=== PATIENT | male | born 1970 | race American Indian/Alaskan Native ===

== ENCOUNTER 2018-05-24 20:15 | Inpatient (IN) | payer MEDICAID ==
[2018-05-24] MEDS ORDERED: ZOFRAN IV ONE (21:03)
[2018-05-24] MEDS ORDERED: PEPCID IV ONE (21:03)
--- NOTE | 2018-05-24 21:11 | Emergency Department Report ---
ED General Adult HPI - General Stated complaint: NAUSE AND VOMITING Time Seen by Provider: 05/24/18 20:54 - History of Present Illness Initial comments: Patient is a 48-year-old -[place] male with a past medical history of congestive heart failure that is end stage who is at home Milrinone drip as well as history of chronic pain who is presenting with nausea/vomiting. Patient was released from the hospital service on May 11 approximately 2 and half weeks ago. Patient states he also was recently admitted to [facility] as well. Patient states that he is chronically been on Percocet however he got his last dose of Percocet 3 days ago. Patient went to go fill a prescription for Roxicodone today before being able to take that dose patient began vomiting. Patient been unable to keep anything down. Patient denies any chest pain shortness of breath fevers chills diarrhea, no congestion at this time. I was able to review the discharge summary for the patient that was from Hospital on on 05/21/2018. Patient Was Admitted for 4 Days of Diarrhea and Nausea and Vomiting. Patient Had Acute Kidney Injury Was Given Gentle IV Fluids and His Renal Function Did Improve. At Time of Discharge the Patient's BUN/creatinine Was 64 and 2.1 Respectively Associated Symptoms: denies: confusion, chest pain, diaphoresis, fever/chills, other (abd pain) - Related Data Allergies Allergy/AdvReac Type Severity Reaction Status Date / Time No Known Allergies Allergy Unverified 05/24/18 22:15 ED Review of Systems ROS: Stated complaint: NAUSE AND VOMITING Other details as noted in HPI Comment: All other systems reviewed and negative ED Physical Exam - General General appearance: alert, in no apparent distress - Head Head exam: Present: atraumatic, normocephalic - Eye Eye exam: Present: normal appearance - ENT ENT exam: Present: mucous membranes moist - Neck Neck exam: Present: normal inspection - Respiratory Respiratory exam: Present: normal lung sounds bilaterally. Absent: respiratory distress - Cardiovascular Cardiovascular Exam: Present: regular rate, normal rhythm. Absent: systolic murmur, diastolic murmur, rubs, gallop - GI/Abdominal GI/Abdominal exam: Present: soft, normal bowel sounds. Absent: distended, tenderness, guarding, rebound - Rectal Rectal exam: Present: deferred - Extremities Exam Extremities exam: Present: normal inspection - Back Exam Back exam: Present: normal inspection - Neurological Exam Neurological exam: Present: alert, oriented X3 - Psychiatric Psychiatric exam: Present: normal affect, normal mood - Skin Skin exam: Present: warm, dry, intact, normal color. Absent: rash ED Course Vital Signs 05/24/18 05/24/18 05/24/18 20:54 21:07 21:26 Temperature 97.4 F L 98.1 F Pulse Rate 117 H 115 H Respiratory 23 16 11 L Rate Blood Pressure 95/60 Blood Pressure 95/60 [Left] O2 Sat by Pulse 95 95 Oximetry - Reevaluation(s) Reevaluation #1: 05/24/18 21:10 Patient has been on chronic Percocet for chronic pain. Patient's last dose was approximately 3 days ago and likely his nausea vomiting is secondary to withdrawal. Patient states he has no pain at this time. Patient did take one dose of the Roxicodone may have Some of it down even after the vomiting. The patient has nausea will be controlled we will check laboratory studies. ED Medical Decision Making - Lab Data Result diagrams: 05/24/18 21:21 05/24/18 21:21 Lab Results 05/24/18 05/24/18 Range/Units 21:21 21:21 WBC 5.6 (4.5-11.0) K/mm3 RBC 3.99 (3.65-5.03) M/mm3 Hgb 10.8 L (11.8-15.2) gm/dl Hct 33.4 L (35.5-45.6) % MCV 84 (84-94) fl MCH 27 L (28-32) pg MCHC 32 (32-34) % RDW 18.2 H (13.2-15.2) % Plt Count 371 (140-440) K/mm3 Lymph % (Auto) 9.6 L (13.4-35.0) % [place] % (Auto) 8.2 H (0.0-7.3) % Eos % (Auto) 2.7 (0.0-4.3) % Baso % (Auto) 1.7 (0.0-1.8) % Lymph # 0.5 L (1.2-5.4) K/mm3 [place]linger # 0.5 (0.0-0.8) K/mm3 Eos # 0.2 (0.0-0.4) K/mm3 Baso # 0.1 (0.0-0.1) K/mm3 Seg Neutrophils % 77.8 H (40.0-70.0) % Seg Neutrophils # 4.3 (1.8-7.7) K/mm3 Sodium 119 L* (137-145) mmol/L Potassium 4.0 (3.6-5.0) mmol/L Chloride 73.9 L (98-107) mmol/L Carbon Dioxide 26 (22-30) mmol/L Anion Gap 23 mmol/L BUN 97 H (9-20) mg/dL Creatinine 4.2 H (0.8-1.5) mg/dL Estimated GFR 19 ml/min BUN/Creatinine Ratio 23 % Glucose 126 H (75-100) mg/dL Calcium 9.2 (8.4-10.2) mg/dL Total Bilirubin 1.50 H (0.1-1.2) mg/dL AST 145 H (5-40) units/L ALT 162 H (7-56) units/L Alkaline Phosphatase 112 (35-129) units/L Total Protein 6.5 (6.3-8.2) g/dL Albumin 3.6 L (3.9-5) g/dL Albumin/Globulin Ratio 1.2 % Lipase 26 (13-60) units/L - EKG Data -: EKG Interpreted by Me - EKG Data Interpretation: other 05/24/18 21:09 EKG shows sinus tachycardia 117 axis is leftward intervals show a prolonged QT. There is a bifascicular block. Patient with no acute ST segment elevations. Time of interpretation is 2054 - Medical Decision Making Patient is a 48-year-old asthmatic male with end-stage CHF who is here for nausea vomiting and probable opiate withdrawal. Patient has had some worsening of his renal function and his sodium is low as well. Patient be admitted to the hospitalist service under Dr. Coats. Patient been given gentle hydration with 5 mL bolus to start with. Patient admitted in stable condition. Critical Care Time: Yes (30) Critical care attestation.: If time is entered above; I have spent that time in minutes in the direct care of this critically ill patient, excluding procedure time. ED Disposition Clinical Impression: Acute kidney injury, End stage congestive heart failure, Hyponatremia, Withdrawal from opioids Disposition: DC-09 OP ADMIT IP TO THIS HOSP Is pt being admited?: Yes Does the pt Need Aspirin: No Condition: Stable Referrals: PRIMARY CARE, [Primary Care Provider] - 3-5 Days Time of Disposition: 00:29
[2018-05-24 21:47] LABS: Albumin 3.6 g/dL (3.9-5); Calcium 9.2 mg/dL (8.4-10.2)
[2018-05-24 21:50] LABS: Hematocrit 33.4 % (35.5-45.6); Hemoglobin 10.8 gm/dl (11.8-15.2); Mean Corpuscular HGB Conc 32 % (32-34); Mean Corpuscular Volume 84 fl (84-94); Platelet Count 371 K/mm3 (140-440); Red Blood Count 3.99 M/mm3 (3.65-5.03); Red Cell Distribution Width 18.2 % (13.2-15.2)
[2018-05-24 21:52] LABS: Basophils % (Auto) 1.7 % (0.0-1.8); Eosinophils % (Auto) 2.7 % (0.0-4.3); Lymphocytes # (Auto) 0.5 K/mm3 (1.2-5.4); Lymphocytes % (Auto) 9.6 % (13.4-35.0); Monocytes % (Auto) 8.2 % (0.0-7.3)
[2018-05-24 21:53] LABS: Basophils # (Auto) 0.1 K/mm3 (0.0-0.1); Eosinophils # (Auto) 0.2 K/mm3 (0.0-0.4); Monocytes # (Auto) 0.5 K/mm3 (0.0-0.8)
[2018-05-24] MEDS ORDERED: NACL 0.9% 500 ML 500 ML IV ONE (23:50)
[2018-05-25] MEDS ORDERED: PERCOCET 5/325 PO ONE (00:52)
[2018-05-25] MEDS ORDERED: TYLENOL PO PRN (01:50)
[2018-05-25] MEDS ORDERED: SODIUM CHLORIDE FLUSH SYRINGE 10 ML IV PRN (01:50)
[2018-05-25] MEDS ORDERED: ZOFRAN IV PRN (01:50)
--- NOTE | 2018-05-25 01:54 | History and Physical Report ---
History of Present Illness Date of examination: 05/25/18 History of present illness: 48-year-old man with a history of end-stage CHF on milrinone drip causing emergency room with complaints of nausea vomiting. He was Recently hospitalized at [facility] for nausea vomiting diarrhea and acute renal failure. He underwent a right heart cath, subsequently determined not to be a candidate for advanced therapies for treatment of his end-stage heart failure. Patient was transferred to [facility] advanced heart failure team for second opinion, he was deemed not to be a candidate for advanced therapy. He was made a DO NOT RES USCITATE but he has rescinded DO NOT RESUSCITATE and wants everything to be done. Complaints of feeling cold, he hasn't had any narcotics in the last 3 days. Patient has persistent tachycardia since his been in the emergency room, I have checked a rectal temperature, he is febrile. Records reviewed [facility] Review of systems Constitutional: no weight loss,fever Ears, eyes, nose, mouth and throat: no nasal congestion, no nasal discharge, no sinus pressure, no vision change, no red eye. Neck: No neck pain or rigidity. Cardiovascular: no palpitations, chest pain Respiratory: no cough, shortness of breath Gastrointestinal: no hematochezia, abdominal pain Genitourinary : no frequency , no hematuria Musculoskeletal: no joint swelling or muscle ache Integumentary: no rash, no pruritis Neurological: no parathesias, no focal weakness Endocrine: no cold or heat intolerance, no polyuria or polydipsia Hematologic/Lymphatic: no easy bruising, no easy bleeding, no gland swelling Allergic/Immunologic: no urticaria, no angioedema. PAST MEDICAL HISTORY: End-stage heart failure, chronic kidney disease, gout PAST SURGICAL HISTORY: None SOCIAL HISTORY: Denies alcohol, drugs, tobacco FAMILY HISTORY: Hypertension Medications and Allergies Allergies Allergy/AdvReac Type Severity Reaction Status Date / Time No Known Allergies Allergy Verified 05/25/18 01:58 Exam - Physical Exam Narrative exam: General Apperance: The patient lying in bed, breathing comfortable HEENT: Normocephalic, atraumatic. Pupils equally round and reactive to light, EOMI, no sclericterus or JVD or thyromegaly or nodule. , no carotid bruit, mucous membranes moist, no exudate or erythema Heart: S1-S2, regular is rhythm Lungs: Decreased breath sound at bases bilaterally, breathing comfortable Abdomen: Positive bowel sounds, soft, nontender, nondistended, no organomegaly Extremities: No edema cyanosis clubbing Skin: no rash, nodule, warm and dry Neuro: cranial nerves 2-12 intact, speech is fluent, motor/sensory intact - Constitutional Vitals: Temp Pulse Resp BP Pulse Ox 98.1 F 115 H 11 L 95/60 95 05/24/18 21:26 05/24/18 21:26 05/24/18 21:26 05/24/18 21:26 05/24/18 21:26 Results - Labs CBC & Chem 7: 05/24/18 21:21 05/24/18 21:21 Labs: Abnormal lab results 05/24/18 05/24/18 Range/Units 21:21 21:21 Hgb 10.8 L (11.8-15.2) gm/dl Hct 33.4 L (35.5-45.6) % MCH 27 L (28-32) pg RDW 18.2 H (13.2-15.2) % Lymph % (Auto) 9.6 L (13.4-35.0) % [place] % (Auto) 8.2 H (0.0-7.3) % Lymph # 0.5 L (1.2-5.4) K/mm3 Seg Neutrophils % 77.8 H (40.0-70.0) % Sodium 119 L* (137-145) mmol/L Chloride 73.9 L (98-107) mmol/L BUN 97 H (9-20) mg/dL Creatinine 4.2 H (0.8-1.5) mg/dL Glucose 126 H (75-100) mg/dL Total Bilirubin 1.50 H (0.1-1.2) mg/dL AST 145 H (5-40) units/L ALT 162 H (7-56) units/L Albumin 3.6 L (3.9-5) g/dL Assessment and Plan Assessment SIRS Acute renal insufficiency on chronic End-stage heart failure on milrinone drip Hyponatremia Chronic pain Plan Admit to medicine Start IV Zosyn, obtain blood cultures, urinalysis, chest x-ray Consult renal, cardiology, continue the IV fluids DVT prophylaxis
--- NOTE | 2018-05-25 02:57 | XRay Report ---
FINAL REPORT PROCEDURE: XR CHEST 1V AP TECHNIQUE: Chest radiograph anteroposterior view. CPT 02664 HISTORY: evaluate for pna COMPARISON: No prior studies are available for comparison. FINDINGS: Heart: The heart is enlarged. Mediastinum/Vessels: Normal. Lungs/Pleural space: Lungs are expanded. There are no acute infiltrates. There is no pleural effusion or pneumothorax.. Bony thorax: No acute osseous abnormality. Life support devices: There is right-sided PICC line. The tip is in the superior vena cava.. IMPRESSION: The heart is enlarged. Lungs are expanded. There are no acute infiltrates. There is no pleural effusion or pneumothorax.. There is right-sided PICC line. The tip is in the superior vena cava.. .
[2018-05-25] MEDS ORDERED: ZOSYN/NS 4.5GM/100ML 4.5 GM/100 ML VIAL IV ONE (03:01)
[2018-05-25] MEDS: ZOSYN/NS 2.25 GM/50ML 2.25 GM/50 ML BAG IV SCH ×3 (03:10→23:00)
[2018-05-25 03:22] LABS: Bilirubin,Urine NEG (Negative); Blood,Urine NEG (Negative); Color,Urine Yellow (Yellow); Mucus,Urine FEW /HPF; Protein,Urine <15 mg/dL mg/dL (Negative); Urobilinogen,Urine < 2.0 mg/dL (<2.0)
[2018-05-25 07:08] LABS: Hematocrit 31.1 % (35.5-45.6); Mean Corpuscular HGB Conc 32 % (32-34); Mean Corpuscular Volume 82 fl (84-94); Platelet Count 340 K/mm3 (140-440); Red Blood Count 3.77 M/mm3 (3.65-5.03); Red Cell Distribution Width 18.6 % (13.2-15.2)
[2018-05-25 07:27] LABS: Calcium 9.3 mg/dL (8.4-10.2)
[2018-05-25 07:29] LABS: Creatine Kinase MB 1.8 ng/mL (0.0-4.0)
[2018-05-25 07:49] LABS: Chol/HDL Ratio 4.44 %
[2018-05-25 08:56] LABS: Creatine Kinase MB 1.8 ng/mL (0.0-4.0)
[2018-05-25 09:25] LABS: Basophils % (Manual) 0 % (0.0-1.8); Eosinophils % (Manual) 0 % (0.0-4.3); Total Cells Counted 100
[2018-05-25 09:26] LABS: Anisocytosis 1+; Ovalocytes Few; Platelet Estimate Cons; Poikilocytosis 1+; Target Cells Few
[2018-05-25] MEDS ORDERED: LOVENOX SUB-Q ONE (10:58)
--- NOTE | 2018-05-25 11:10 | Event Note ---
Date: 05/25/18 Patient reevaluated Same condition Labs and overnite events reviewedWhite count has gone up
[2018-05-25] MEDS: SODIUM CHLORIDE FLUSH SYRINGE 10 ML IV SCH ×2 (11:19→22:50)
[2018-05-25] MEDS: LOVENOX SUB-Q SCH (11:19)
--- NOTE | 2018-05-25 11:19 | Consultation ---
History of Present Illness - Reason for Consult Consult date: 05/25/18 acute renal failure, chronic renal failure Requesting physician: CHRIS DENNIS - History of Present Illness Patient is a 48-year-old -[place] male with a past medical history of congestive heart failure that is end stage who is at home Milrinone drip as well as history of chronic pain who Present to the emergency room with nausea/vomiting. Patient was released from the hospital service on May 11 approximately 2 and half weeks ago. Patient states he also was recently admitted to [facility] as well. Patient states that he is chronically been on Percocet however he got his last dose of Percocet 3 days ago. Patient went to go fill a prescription for Roxicodone yesterday before being able to take that dose patient began vomiting. Patient been unable to keep anything down. Patient denies any chest pain shortness of breath fevers chills diarrhea, no congestion at this time. as noted in the H&P patient Was Admitted for 4 Days of Diarrhea and Nausea and Vomiting. Patient Had Acute Kidney Injury Was Given Gentle IV Fluids and His Renal Function Did Improve. At Time of Discharge the Patient's BUN/creatinine Was 64 and 2.1 Respectively Past History Past Medical History: other (end-stage cardiomyopathy, chronic kidney disease) Past Surgical History: No surgical history Medications and Allergies Allergies Allergy/AdvReac Type Severity Reaction Status Date / Time No Known Allergies Allergy Verified 05/25/18 01:58 Home Medications Medication Instructions Recorded Confirmed Last Taken Type Aspirin [Aspirin BABY CHEW TAB] 81 mg PO QDAY 05/25/18 05/25/18 1 Day Ago History ~05/24/18 AtorvaSTATin [Lipitor] 20 mg PO QHS 05/25/18 05/25/18 1 Day Ago History ~05/24/18 Digoxin [Lanoxin] 0.125 mg PO DAILY 05/25/18 05/25/18 1 Day Ago History ~05/24/18 Ferrous Sulfate [Iron] 325 mg PO TID 05/25/18 05/25/18 1 Day Ago History ~05/24/18 Hydralazine HCl 50 mg PO Q8HR 05/25/18 05/25/18 1 Day Ago History ~05/24/18 Isosorbide Dinitrate [Isordil 10 mg PO TID 05/25/18 05/25/18 1 Day Ago History Titradose] ~05/24/18 Milrinone-D5w 20 mg/100 ml 7.1 hour IV CONT 05/25/18 05/25/18 05/25/18 06:06 History continuous Spironolactone [Aldactone] 25 mg PO QDAY 05/25/18 05/25/18 1 Day Ago History ~05/24/18 Torsemide [Demadex] 20 mg PO BID 05/25/18 05/25/18 1 Day Ago History ~05/24/18 oxyCODONE /ACETAMINOPHEN [Percocet 10 mg PO Q6HR PRN 05/25/18 05/25/18 1 Day Ago History 5/325] ~05/24/18 Active Meds: Active Medications Acetaminophen (Tylenol) 650 mg PO Q4H PRN PRN Reason: Pain MILD(1-3)/Fever >100.5/SANTIAGO Enoxaparin Sodium (Lovenox) 30 mg SUB-Q QDAY BURAK Piperacillin Sod/Tazobactam Sod (Zosyn/Ns 2.25 Gm/50ml) 2.25 gm in 50 mls @ 100 mls/hr IV Q8H BURAK; Protocol Last Admin: 05/25/18 11:18 Dose: 100 mls/hr Documented by: Ondansetron HCl (Zofran) 4 mg IV Q4H PRN PRN Reason: Nausea And Vomiting Oxycodone/Acetaminophen (Percocet 5/325) 1 tab PO Q6H PRN PRN Reason: Pain, Moderate (4-6) Sodium Chloride (Sodium Chloride Flush Syringe 10 Ml) 10 ml IV BID BURAK Sodium Chloride (Sodium Chloride Flush Syringe 10 Ml) 10 ml IV PRN PRN PRN Reason: LINE FLUSH Review of Systems All systems: negative (negative except as noted above) Exam - Vital Signs Vital signs: Vital Signs Pulse Ox 93 05/24/18 20:49 - General Appearance General appearance: well-developed, well-nourished, appears stated age EENT: PERRL, mucous membranes moist Neck: Present: neck supple, trachea midline. Absent: JVD/HJR, Masses Respiratory: Decreased Breath Sounds (at the bases) Heart: regular, normal heart rate Gastrointestinal: Present: normal, normoactive bowel sounds Integumentary: other (1+ edema) Results - Lab Results 05/25/18 06:41 05/25/18 06:41 Most recent lab results Calcium 9.3 mg/dL (8.4-10.2) 05/25/18 06:41 Assessment and Plan impression * Acute on chronic renal failure * Nausea and vomiting * Hyponatremia * Severe cardiomyopathy * Hyperlipidemia recommendations * Although patient does have some peripheral edema , His lungs are clear * history seems to be consistent with dehydration * Hydrate him gently with isotonic fluids * Do Workup for hyponatremia * check vasculitis workup as well * Renal ultrasound to assess kidney size and echogenicity * Avoid nephrotoxins * Monitor fluid status and electrolytes closely * Thank you very much for the consultation. Shall follow along with you
--- NOTE | 2018-05-25 12:54 | Ultrasound Report ---
FINAL REPORT EXAM: US RENAL BILAT HISTORY: renal failure TECHNIQUE: Renal ultrasound. PRIORS: None currently available. FINDINGS: RIGHT KIDNEY: 11.3 x 5.1 x 6.2 cm. Cortex measures 1.5 cm. Normal echotexture. No hydronephrosis, sto ne, or lesion. LEFT KIDNEY: 9.9 x 4.9 x 4.9 cm. Cortex measures 1.6 cm. Normal echotexture. No hydronephrosis, stone , or lesion. BLADDER: Limited images are unremarkable. IMPRESSION: Unremarkable.
[2018-05-25 12:59] LABS: Creatinine,Urine 65.1 mg/dL (0.1-20.0); Fractional Sodium Excretion 0.6
[2018-05-25 13:35] LABS: Hepatitis B Surface Antigen Non-Reactive (Negative); Hepatitis C Virus Antibody Non-Reactive (NonReactive)
[2018-05-25] MEDS ORDERED: NACL 0.9% 1000 ML 1,000 ML IV SCH (17:00)
[2018-05-25] MEDS ORDERED: PERCOCET 5/325 PO PRN (17:18)
[2018-05-25] MEDS ORDERED: MILRINONE IV SCH (17:30)
[2018-05-25] MEDS ORDERED: NON-FORMULARY (Hydralazine Hcl [Hydralazine Hcl] 50 MG) PO SCH (17:30)
[2018-05-25] MEDS ORDERED: DEXTROSE IV SCH (17:30)
--- NOTE | 2018-05-25 17:47 | Consultation ---
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 Of note the patient has been hospitalized multiple times within the last year most recently he was hospitalized in the [place] system in January 2018 with a diagnosis of acute on chronic systolic heart failure and discharged home on palliative inotropic. In 04/27/2018The patient was admitted to [facility] with complaints of diarrhea nausea and lack of appetite. The patient also had acute on chronic kidney failure. During this hospitalization it was discovered that the patient was not a candidate for advanced therapies at [place] due to compliance issues. Palliative care was consulted for hospice discussion. The patient declined hospice and was subsequently transferred to [facility] hospital on 05/09/2018. Aggressive intravenous diarrhetic's was used and the patient was also offered an intra-aortic balloon pump. The patient once again was considered not a ca ndidate for advanced therapy. During this hospitalization the patient's CODE STATUS was changed to DNR/DNI and he was discharged to inpatient hospice on 05/21/2017. [facility] inpatient hospice the patient was . In doing his inpatient hospital stay he subsequent decided to discharge himself and leave and go home. Once the patient went home he developed significant nausea and vomiting. In the emergency department the patient was noted to have a low-grade fever of 100.9. He was tachycardic and a pulse of 117. His white count was 16.2. Sodium 122. BUN 101. Creatinine 4.3 Past History Past Medical History: heart failure, hypertension, hyperlipidemia, other (end- stage cardiomyopathy, chronic kidney disease) Past Surgical History: No surgical history Social history: prescription drug abuse. denies: smoking, IV drug use Family history: no significant family history Medications and Allergies Allergies Allergy/AdvReac Type Severity Reaction Status Date / Time No Known Allergies Allergy Verified 05/25/18 01:58 Home Medications Medication Instructions Recorded Confirmed Last Taken Type Aspirin [Aspirin BABY CHEW TAB] 81 mg PO QDAY 05/25/18 05/25/18 1 Day Ago History ~05/24/18 AtorvaSTATin [Lipitor] 20 mg PO QHS 05/25/18 05/25/18 1 Day Ago History ~05/24/18 Digoxin [Lanoxin] 0.125 mg PO DAILY 05/25/18 05/25/18 1 Day Ago History ~05/24/18 Ferrous Sulfate [Iron] 325 mg PO TID 05/25/18 05/25/18 1 Day Ago History ~05/24/18 Hydralazine HCl 50 mg PO Q8HR 05/25/18 05/25/18 1 Day Ago History ~05/24/18 Isosorbide Dinitrate [Isordil 10 mg PO TID 05/25/18 05/25/18 1 Day Ago History Titradose] ~05/24/18 Milrinone-D5w 20 mg/100 ml 7.1 hour IV CONT 05/25/18 05/25/18 05/25/18 06:06 History continuous Spironolactone [Aldactone] 25 mg PO QDAY 05/25/18 05/25/18 1 Day Ago History ~05/24/18 Torsemide [Demadex] 20 mg PO BID 05/25/18 05/25/18 1 Day Ago History ~05/24/18 oxyCODONE /ACETAMINOPHEN [Percocet 10 mg PO Q6HR PRN 05/25/18 05/25/18 1 Day Ago History 325] ~05/24/18 Active Meds: Active Medications Acetaminophen (Tylenol) 650 mg PO Q4H PRN PRN Reason: Pain MILD(1-3)/Fever >100.5/SANTIAGO Aspirin (Baby Aspirin) 81 mg PO QDAY [facility] Atorvastatin Calcium (Lipitor) 20 mg PO QHS [facility] Digoxin (Lanoxin) 0.125 mg PO DAILY [facility] Enoxaparin Sodium (Lovenox) 30 mg SUB-Q QDAY [facility] Last Admin: 05/25/18 11:19 Dose: 30 mg Documented by: Ferrous Sulfate (Feosol) 325 mg PO TID [facility] Piperacillin Sod/Tazobactam Sod (Zosyn/Ns 2.25 Gm/50ml) 2.25 gm in 50 mls @ 100 mls/hr IV Q8H [facility]; Protocol Last Admin: 05/25/18 11:18 Dose: 100 mls/hr Documented by: Sodium Chloride (Nacl 0.9% 1000 Ml) 1,000 mls @ 75 mls/hr IV DIRECT [facility] Isosorbide Dinitrate (Isordil Titradose) 10 mg PO TID [facility] Miscellaneous Medication (Hydralazine Hcl [Hydralazine Hcl]) 50 mg PO Q8HR [facility] Miscellaneous Medication (Milrinone-D5w 20 Mg/100 Ml) 7.1 hour IV CONT [facility] Miscellaneous Medication (Torsemide [Demadex]) 20 mg PO BID [facility] Ondansetron HCl (Zofran) 4 mg IV Q4H PRN PRN Reason: Nausea And Vomiting Oxycodone/Acetaminophen (Percocet 5/325) 1 tab PO Q6H PRN PRN Reason: Pain, Moderate (4-6) Oxycodone/Acetaminophen (Percocet 5/325) tab PO Q6HR PRN PRN Reason: Pain Sodium Chloride (Sodium Chloride Flush Syringe 10 Ml) 10 ml IV BID [facility] Last Admin: 05/25/18 11:19 Dose: 10 ml Documented by: Sodium Chloride (Sodium Chloride Flush Syringe 10 Ml) 10 ml IV PRN PRN PRN Reason: LINE FLUSH Spironolactone (Aldactone) 25 mg PO QDAY [facility] Review of Systems Constitutional: weight loss, no fever, no chills, no sweats Ears, nose, mouth and throat: no ear pain, no ear discharge, no tinnitis Cardiovascular: chest pain (mild), leg edema, no orthopnea, no palpitations, no syncope Respiratory: no cough, no hemoptysis, no shortness of breath Gastrointestinal: abdominal pain, nausea, vomiting, other (distention) Genitourinary Male: urinary retention Rectal: no incontinence, no bleeding Musculoskeletal: no neck stiffness, no neck pain Integumentary: no rash, no pruritis Neurological: weakness, no head injury, no paralysis Endocrine: no cold intolerance, no heat intolerance Hematologic/Lymphatic: no easy bruising, no easy bleeding Allergic/Immunologic: no urticaria, no allergic rhinitis Physical Examination Vital Signs Pulse Ox 93 05/24/18 20:49 General appearance: no acute distress HEENT: Positive: PERRL Neck: Positive: neck supple, trachea midline Cardiac: Positive: Regular Rhythm, Tachycardia Lungs: Positive: clear to auscultation, Normal Breath Sounds Neuro: Positive: Grossly Intact Abdomen: Positive: Soft, Decreased Bowel Sounds, Distended Male genitourinary: Positive: deferred Skin: Negative: Rash, Suspicious Lesions Extremities: Present: +1 Edema, warm Results 05/25/18 06:41 05/25/18 06:41 Cardiac Enzymes 05/24/18 05/25/18 05/25/18 Range/Units 21:21 06:41 08:08 AST 145 H (5-40) units/L CK-MB (CK-2) 1.8 1.8 (0.0-4.0) ng/mL Lipids 05/25/18 Range/Units 06:41 Triglycerides 62 (2-149) mg/dL Cholesterol 80 (50-199) mg/dL HDL Cholesterol 18 L (40-59) mg/dL Cholesterol/HDL Ratio 4.44 % CBC 05/24/18 05/25/18 Range/Units 21:21 06:41 WBC 5.6 16.2 H (4.5-11.0) K/mm3 RBC 3.99 3.77 (3.65-5.03) M/mm3 Hgb 10.8 L 10.0 L (11.8-15.2) gm/dl Hct 33.4 L 31.1 L (35.5-45.6) % Plt Count 371 340 (140-440) K/mm3 Lymph # 0.5 L (1.2-5.4) K/mm3 Henry # 0.5 (0.0-0.8) K/mm3 Eos # 0.2 (0.0-0.4) K/mm3 Baso # 0.1 (0.0-0.1) K/mm3 Comprehensive Metabolic Panel 05/24/18 05/25/18 Range/Units 21:21 06:41 Sodium 119 L* 122 L (137-145) mmol/L Potassium 4.0 4.5 (3.6-5.0) mmol/L Chloride 73.9 L 77.6 L (98-107) mmol/L Carbon Dioxide 26 26 (22-30) mmol/L BUN 97 H 101 H (9-20) mg/dL Creatinine 4.2 H 4.3 H (0.8-1.5) mg/dL Glucose 126 H 104 H (75-100) mg/dL Calcium 9.2 9.3 (8.4-10.2) mg/dL AST 145 H (5-40) units/L ALT 162 H (7-56) units/L Alkaline Phosphatase 112 (35-129) units/L Total Protein 6.5 (6.3-8.2) g/dL Albumin 3.6 L (3.9-5) g/dL EKG interpretations - Telemetry EKG Rhythm: Sinus Tachycardia Assessment and Plan Vomiting/Nausea Concern for withdrawal symptoms Leukocytosis Hyponatremia Acute on Chronic Kidney failure Transaminitis Chronic systolic/diatolic heart failure EF 10-15% on pallliative milrinone (home 0.6mcg/kg/min) NICM stage D sever MR/TR Hypertension Hyperlipidemia Stage III CKD/Cardiorenal Syndrome Chronic pain PLAN: The patient has been evaluated within 2 hospital systems and deemed not a candidate for advanced therapy. With regard to the patient's cardiac status he has advanced end-stage heart failure. We will need to address possible inpatient versus home hospice. The patient was discharged from [facility] on Bumex 5 mg twice a day Colace 100 mg twice a day as needed potassium 20 mEq 2 tablets once a day continuous milrinone drip Aldactone 25 mg daily. The following medications were discontinued at [facility] start aspirin, Lipitor, digoxin, hydralazine, Percocet, and torsemide. Given the patient has known chronic pain he will likely require outpatient pain medicine to avoid withdrawal symptoms. In [facility] the patient was on hospital the patient was taking Percocet 5/325.
[2018-05-25] MEDS: BABY ASPIRIN PO SCH (18:48)
[2018-05-25] MEDS: ALDACTONE PO SCH (18:48)
[2018-05-25] MEDS: ISORDIL TITRADOSE PO SCH (20:28)
[2018-05-25] MEDS: DEMADEX PO SCH ×2 (20:29→21:30)
[2018-05-25] MEDS: MILRINONE-D5W 20 MG/100 ML 20 MG/100 ML BAG IV SCH (21:09)
[2018-05-25] MEDS: FEOSOL PO SCH (21:25)
[2018-05-25] MEDS: LANOXIN PO SCH (21:25)
[2018-05-25] MEDS: APRESOLINE PO SCH (21:51)
[2018-05-25] MEDS ORDERED: NON-FORMULARY (Torsemide [Demadex] 20 MG) PO SCH (22:00)
[2018-05-26] MEDS: PERCOCET 5/325 PO PRN ×3 (00:50→20:58)
[2018-05-26] MEDS: ZOSYN/NS 2.25 GM/50ML 2.25 GM/50 ML BAG IV SCH ×3 (04:00→20:57)
[2018-05-26] MEDS: MILRINONE-D5W 20 MG/100 ML 20 MG/100 ML BAG IV SCH (06:35)
[2018-05-26] MEDS: DEMADEX PO SCH ×2 (06:38→17:28)
[2018-05-26] MEDS: APRESOLINE PO SCH ×3 (06:39→21:14)
[2018-05-26 08:12] LABS: Basophils # (Auto) 0.1 K/mm3 (0.0-0.1); Basophils % (Auto) 0.6 % (0.0-1.8); Eosinophils # (Auto) 0.3 K/mm3 (0.0-0.4); Eosinophils % (Auto) 3.1 % (0.0-4.3); Hematocrit 33.2 % (35.5-45.6); Hemoglobin 10.6 gm/dl (11.8-15.2); Lymphocytes # (Auto) 1.3 K/mm3 (1.2-5.4); Mean Corpuscular HGB Conc 32 % (32-34); Mean Corpuscular Volume 83 fl (84-94); Monocytes # (Auto) 0.7 K/mm3 (0.0-0.8); Monocytes % (Auto) 7.2 % (0.0-7.3); Platelet Count 339 K/mm3 (140-440); Red Blood Count 4.01 M/mm3 (3.65-5.03); Red Cell Distribution Width 18.2 % (13.2-15.2)
[2018-05-26] MEDS: ISORDIL TITRADOSE PO SCH ×3 (08:19→20:58)
[2018-05-26 08:28] LABS: Calcium 9.2 mg/dL (8.4-10.2)
--- NOTE | 2018-05-26 08:37 | Progress Note ---
Assessment and Plan impression * Acute on chronic renal failure * Nausea and vomiting * Hyponatremia * Severe cardiomyopathy * Hyperlipidemia recommendations * Patient does have some fine basilar crackles and peripheral edema . * No further complaints of nausea or vomiting. Discontinue his IV fluid for now * Patient may have cardiorenal syndrome. * Currently on milrinone drip * Serum sodium is slowly improving. Restrict free water intake. * Follow up results of vasculitis workup * Renal ultrasound is normal * Avoid nephrotoxins * Monitor fluid status and electrolytes closely Subjective Date of service: 05/26/18 Interval history: Patient denies any more nausea or vomiting. Shortness of breath seems to be improving. Objective - Vital Signs Vital signs: Vital Signs - 12hr 05/25/18 05/25/18 05/25/18 21:25 21:51 22:00 Temperature Pulse Rate 84 84 Pulse Rate [ 118 H Right Radial] Respiratory Rate Blood Pressure 90/45 90/45 O2 Sat by Pulse 94 Oximetry 05/25/18 05/26/18 05/26/18 22:28 04:00 04:33 Temperature 97.4 F L 98.0 F Pulse Rate 124 H 122 H 116 H Pulse Rate [ Right Radial] Respiratory 18 16 Rate Blood Pressure 85/53 81/53 O2 Sat by Pulse 94 97 Oximetry 05/26/18 06:39 Temperature Pulse Rate 113 H Pulse Rate [ Right Radial] Respiratory Rate Blood Pressure 85/53 O2 Sat by Pulse Oximetry - General Appearance General appearance: well-developed, well-nourished, appears stated age EENT: PERRL, mucous membranes moist Neck: no JVD, no thyromegaly, no carotid bruit, supple Respiratory: Present: Rales (left base) Cardiology: regular, normal heart rate, S1S2, no murmurs Gastrointestinal: normal, normoactive bowel sounds Integumentary: other (1+ edema) - Lab 05/26/18 07:38 05/26/18 07:38 Most recent lab results Calcium 9.2 mg/dL (8.4-10.2) 05/26/18 07:38 Urine Creatinine 65.1 mg/dL (0.1-20.0) H 05/25/18 12:39 Urine Sodium 12 mmol/L 05/25/18 12:39 Medications & Allergies - Medications Allergies/Adverse Reactions: Allergies No Known Allergies Allergy (Verified 05/25/18 01:58) Home Medications: Home Medications Medication Instructions Recorded Confirmed Last Taken Type Aspirin [Aspirin BABY CHEW TAB] 81 mg PO QDAY 05/25/18 05/25/18 1 Day Ago History ~05/24/18 AtorvaSTATin [Lipitor] 20 mg PO QHS 05/25/18 05/25/18 1 Day Ago History ~05/24/18 Digoxin [Lanoxin] 0.125 mg PO DAILY 05/25/18 05/25/18 1 Day Ago History ~05/24/18 Ferrous Sulfate [Iron] 325 mg PO TID 05/25/18 05/25/18 1 Day Ago History ~05/24/18 Hydralazine HCl 50 mg PO Q8HR 05/25/18 05/25/18 1 Day Ago History ~05/24/18 Isosorbide Dinitrate [Isordil 10 mg PO TID 05/25/18 05/25/18 1 Day Ago History Titradose] ~05/24/18 Milrinone-D5w 20 mg/100 ml 7.1 hour IV CONT 05/25/18 05/25/18 05/25/18 06:06 History continuous Spironolactone [Aldactone] 25 mg PO QDAY 05/25/18 05/25/18 1 Day Ago History ~05/24/18 Torsemide [Demadex] 20 mg PO BID 05/25/18 05/25/18 1 Day Ago History ~05/24/18 oxyCODONE /ACETAMINOPHEN [Percocet 10 mg PO Q6HR PRN 05/25/18 05/25/18 1 Day Ago History 5/325] ~05/24/18 Active Medications: Generic Name Dose Route Start Last Admin Trade Name Freq PRN Reason Stop Dose Admin Acetaminophen 650 mg 05/25/18 01:50 Tylenol PO Q4H PRN Pain MILD(1-3)/Fever >100.5/SANTIAGO Aspirin 81 mg 05/25/18 18:00 05/25/18 18:48 Baby Aspirin PO Not Given QDAY [facility] Atorvastatin Calcium 20 mg 05/25/18 22:00 05/25/18 21:26 Lipitor PO 20 mg QHS [facility] Administration Digoxin 0.125 mg 05/25/18 18:00 05/25/18 21:25 Lanoxin PO 0.125 mg DAILY [facility] Administration Enoxaparin Sodium 30 mg 05/25/18 10:00 05/25/18 11:19 Lovenox SUB-Q 30 mg QDAY [facility] Administration Ferrous Sulfate 325 mg 05/25/18 20:00 05/25/18 21:25 Feosol PO 325 mg TID [facility] Administration Hydralazine HCl 50 mg 05/25/18 22:00 05/26/18 06:39 Apresoline PO Not Given Q8HR [facility] Piperacillin Sod/Tazobactam Sod 2.25 gm in 50 mls @ 100 mls/hr 05/25/18 03:00 05/26/18 04:00 Zosyn/Ns 2.25 Gm/50ml IV 100 mls/hr Q8H [facility] Administration Protocol Sodium Chloride 1,000 mls @ 75 mls/hr 05/25/18 17:00 05/25/18 21:26 Nacl 0.9% 1000 Ml IV 75 mls/hr DIRECT [facility] Administration Milrinone Lactate/Dextrose 20 mg in 100 mls @ 7.1 mls/hr 05/25/18 19:00 05/26/18 06:35 Milrinone-D5w 20 Mg/100 Ml IV 7.1 mls/hr DIRECT [facility] Administration Isosorbide Dinitrate 10 mg 05/25/18 20:00 05/26/18 08:19 Isordil Titradose PO Not Given TID [facility] Ondansetron HCl 4 mg 05/25/18 01:50 Zofran IV Q4H PRN Nausea And Vomiting Oxycodone/Acetaminophen 1 tab 05/25/18 01:50 05/26/18 00:50 Percocet 5/325 PO 1 tab Q6H PRN Administration Pain, Moderate (4-6) Oxycodone/Acetaminophen 1 tab 05/25/18 17:18 Percocet 5/325 PO Q6HR PRN Pain Sodium Chloride 10 ml 05/25/18 10:00 05/25/18 22:50 Sodium Chloride Flush Syringe 10 Ml IV 10 ml BID [facility] Administration Sodium Chloride 10 ml 05/25/18 01:50 Sodium Chloride Flush Syringe 10 Ml IV PRN PRN LINE FLUSH Spironolactone 25 mg 05/25/18 18:00 05/25/18 18:48 Aldactone PO Not Given QDAY [facility] Torsemide 20 mg 05/25/18 19:00 05/26/18 06:38 Demadex PO Not Given BID@0600,1800 [facility]
[2018-05-26] MEDS: FEOSOL PO SCH ×3 (09:09→20:57)
[2018-05-26] MEDS: LOVENOX SUB-Q SCH (09:09)
[2018-05-26] MEDS: BABY ASPIRIN PO SCH (09:09)
[2018-05-26] MEDS: ALDACTONE PO SCH (09:09)
[2018-05-26] MEDS: LANOXIN PO SCH (09:09)
[2018-05-26] MEDS: SODIUM CHLORIDE FLUSH SYRINGE 10 ML IV SCH ×2 (09:10→21:14)
--- NOTE | 2018-05-26 11:44 | Progress Note ---
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 With regard to the patient's cardiac status he has advanced end-stage heart failure. We will need to address possible inpatient versus home hospice. The patient was discharged from [facility] on Bumex 5 mg twice a day Colace 100 mg twice a day as needed potassium 20 mEq 2 tablets once a day continuous milrinone drip Aldactone 25 mg daily. The following medications were discontinued at [facility] start aspirin, Lipitor, digoxin, hydralazine, Percocet, and torsemide. Given the patient has known chronic pain he will likely require outpatient pain medicine to avoid withdrawal symptoms. In [facility] the patient was on hospital the patient was taking Percocet 5/325. The patient has been seen in conjunction with Dr. Millan who agrees with the assessment and plan of care. Subjective Date of service: 05/26/18 Principal diagnosis: N/V Interval history: pt sitting at bedside, no current cardiac complaints. n/v improving, tolerating clears. tele reviewed - pt in ST HR 115. milrinone gtt infusing. Objective Last Vital Signs Temp 98.2 F 05/26/18 08:54 Pulse 90 05/26/18 09:09 Resp 20 05/26/18 08:54 BP 84/50 05/26/18 08:54 Pulse Ox 99 05/26/18 08:54 - Physical Examination General: No Apparent Distress HEENT: Positive: PERRL Neck: Positive: neck supple, trachea midline Cardiac: Positive: Regular Rhythm, S1/S2, Tachycardia Lungs: Positive: clear to auscultation Neuro: Positive: Grossly Intact Abdomen: Positive: Soft, Decreased Bowel Sounds, Distended Skin: Negative: Rash, Suspicious Lesions Extremities: Present: +1 Edema, warm - Labs and Meds CBC 05/26/18 Range/Units 07:38 WBC 10.3 (4.5-11.0) K/mm3 RBC 4.01 (3.65-5.03) M/mm3 Hgb 10.6 L (11.8-15.2) gm/dl Hct 33.2 L (35.5-45.6) % Plt Count 339 (140-440) K/mm3 Lymph # 1.3 (1.2-5.4) K/mm3 Edgar # 0.7 (0.0-0.8) K/mm3 Eos # 0.3 (0.0-0.4) K/mm3 Baso # 0.1 (0.0-0.1) K/mm3 Comprehensive Metabolic Panel 05/25/18 05/26/18 Range/Units 17:32 07:38 Sodium 121 L 121 L (137-145) mmol/L Potassium 4.1 (3.6-5.0) mmol/L Chloride 78.4 L (98-107) mmol/L Carbon Dioxide 25 (22-30) mmol/L BUN 101 H (9-20) mg/dL Creatinine 4.4 H 4.6 H (0.8-1.5) mg/dL Glucose 122 H (75-100) mg/dL Calcium 9.2 (8.4-10.2) mg/dL
--- NOTE | 2018-05-26 14:47 | Progress Note ---
Assessment and Plan Assessment and plan: 48-year-old man with a history of end-stage CHF on milrinone drip causing emergency room with complaints of nausea vomiting. He was Recently hospitalized at [place] for nausea vomiting diarrhea and acute renal failure. He underwent a right heart cath, subsequently determined not to be a candidate for advanced therapies for treatment of his end-stage heart failure. Patient was transferred to [facility] advanced heart failure team for second opinion, he was deemed not to be a candidate for advanced therapy. He was made a DO NOT RESUSCITATE but he has rescinded DO NOT RESUSCITATE and wants everything to be done. Complaints of feeling cold, he hasn't had any narcotics in the last 3 days. Patient has persistent tachycardia since his been in the emergency room, SIRS Acute renal insufficiency on chronic PRESUMED CARDIORENAL SYNDROM End-stage heart failure on milrinone drip Hyponatremia Chronic pain Chronic opioid dependant therapy Severe MR/TR Hyperlipidemia Plan Continue supportive care Will discuss pallative care with patient Case management to work on outpatient Pallative care treatement Continue emperic anbx with zosyn Blood cultures, urinalysis with no clear indication, chest x-ray Cardiology and renal input noted DVT prophylaxis Poor prognosis Plan of care discussed with the patient. History Interval history: Patient is seen today for: shortness of breath Seen and examined at bedside; 24hour events reviewed; nursing staff ; no adverse overnight events reported to me; Denies any chest pain, nausea, vomiting, diarrhea. still with shortness of breath No fever noted blood pressure controlled Hospitalist Physical - Physical exam Narrative exam: VITAL SIGNS: Reviewed. GENERAL: The patient appeared well nourished and normally developed. Vital signs as documented. HEAD: No signs of head trauma. EYES: Pupils are equal. Extraocular motions intact. EARS: Hearing grossly intact. MOUTH: Oropharynx is normal. NECK: No adenopathy, no JVD. CHEST: Chest with diminshed breath sounds bilaterally. No wheezes, rales, or rhonchi. CARDIAC: Regular rate and rhythm. S1 and S2, without murmurs, gallops, or rubs. VASCULAR: +1 pitting Edema. Peripheral pulses normal and equal in all extremities. ABDOMEN: Soft, without detectable tenderness. No sign of distention. No rebound or guarding, and no masses palpated. Bowel Sounds normal. MUSCULOSKELETAL: Good range of motion of all major joints. Extremities without clubbing, cyanosis. +1 bilateral edema. NEUROLOGIC EXAM: Alert and oriented x 3. No focal sensory or strength deficits. Speech normal. Follows commands. PSYCHIATRIC: Mood normal. SKIN: No rash or lesions. - Constitutional Vitals: Temp Pulse Resp BP Pulse Ox 97.5 F L 110 H 18 80/55 99 05/26/18 12:00 05/26/18 12:00 05/26/18 12:00 05/26/18 12:00 05/26/18 08:54 General appearance: Present: no acute distress Results - Labs CBC & Chem 7: 05/26/18 07:38 05/26/18 07:38 Labs: Laboratory Last Values WBC 10.3 K/mm3 (4.5-11.0) 05/26/18 07:38 RBC 4.01 M/mm3 (3.65-5.03) 05/26/18 07:38 Hgb 10.6 gm/dl (11.8-15.2) L 05/26/18 07:38 Hct 33.2 % (35.5-45.6) L 05/26/18 07:38 MCV 83 fl (84-94) L 05/26/18 07:38 MCH 27 pg (28-32) L 05/26/18 07:38 MCHC 32 % (32-34) 05/26/18 07:38 RDW 18.2 % (13.2-15.2) H 05/26/18 07:38 Plt Count 339 K/mm3 (140-440) 05/26/18 07:38 Lymph % (Auto) 13.0 % (13.4-35.0) L 05/26/18 07:38 Peach % (Auto) 7.2 % (0.0-7.3) 05/26/18 07:38 Eos % (Auto) 3.1 % (0.0-4.3) 05/26/18 07:38 Baso % (Auto) 0.6 % (0.0-1.8) 05/26/18 07:38 Lymph # 1.3 K/mm3 (1.2-5.4) 05/26/18 07:38 Peach # 0.7 K/mm3 (0.0-0.8) 05/26/18 07:38 Eos # 0.3 K/mm3 (0.0-0.4) 05/26/18 07:38 Baso # 0.1 K/mm3 (0.0-0.1) 05/26/18 07:38 Add Manual Diff Complete 05/25/18 06:41 Total Counted 100 05/25/18 06:41 Seg Neutrophils % 76.1 % (40.0-70.0) H 05/26/18 07:38 Seg Neuts % (Manual) 95.0 % (40.0-70.0) H 05/25/18 06:41 Band Neutrophils % 0 % 05/25/18 06:41 Lymphocytes % (Manual) 3.0 % (13.4-35.0) L 05/25/18 06:41 Reactive Lymphs % (Man) 0 % 05/25/18 06:41 Monocytes % (Manual) 2.0 % (0.0-7.3) 05/25/18 06:41 Eosinophils % (Manual) 0 % (0.0-4.3) 05/25/18 06:41 Basophils % (Manual) 0 % (0.0-1.8) 05/25/18 06:41 Metamyelocytes % 0 % 05/25/18 06:41 Myelocytes % 0 % 05/25/18 06:41 Promyelocytes % 0 % 05/25/18 06:41 Blast Cells % 0 % 05/25/18 06:41 Nucleated RBC % Not Reportable 05/25/18 06:41 Seg Neutrophils # 7.9 K/mm3 (1.8-7.7) H 05/26/18 07:38 Seg Neutrophils # Man 15.4 K/mm3 (1.8-7.7) H 05/25/18 06:41 Band Neutrophils # 0.0 K/mm3 05/25/18 06:41 Lymphocytes # (Manual) 0.5 K/mm3 (1.2-5.4) L 05/25/18 06:41 Abs React Lymphs (Man) 0.0 K/mm3 05/25/18 06:41 Monocytes # (Manual) 0.3 K/mm3 (0.0-0.8) 05/25/18 06:41 Eosinophils # (Manual) 0.0 K/mm3 (0.0-0.4) 05/25/18 06:41 Basophils # (Manual) 0.0 K/mm3 (0.0-0.1) 05/25/18 06:41 Metamyelocytes # 0.0 K/mm3 05/25/18 06:41 Myelocytes # 0.0 K/mm3 05/25/18 06:41 Promyelocytes # 0.0 K/mm3 05/25/18 06:41 Blast Cells # 0.0 K/mm3 05/25/18 06:41 WBC Morphology Not Reportable 05/25/18 06:41 Hypersegmented Neuts Not Reportable 05/25/18 06:41 Hyposegmented Neuts Not Reportable 05/25/18 06:41 Hypogranular Neuts Not Reportable 05/25/18 06:41 Smudge Cells Not Reportable 05/25/18 06:41 Toxic Granulation Not Reportable 05/25/18 06:41 Toxic Vacuolation Not Reportable 05/25/18 06:41 Dohle Bodies Not Reportable 05/25/18 06:41 Pelger-Huet Anomaly Not Reportable 05/25/18 06:41 Shellie Rods Not Reportable 05/25/18 06:41 Platelet Estimate Cons 05/25/18 06:41 Clumped Platelets Not Reportable 05/25/18 06:41 Plt Clumps, EDTA Not Reportable 05/25/18 06:41 Large Platelets Not Reportable 05/25/18 06:41 Giant Platelets Not Reportable 05/25/18 06:41 Platelet Satelliting Not Reportable 05/25/18 06:41 Plt Morphology Comment Not Reportable 05/25/18 06:41 RBC Morphology Not Reportable 05/25/18 06:41 Dimorphic RBCs Not Reportable 05/25/18 06:41 Polychromasia Not Reportable 05/25/18 06:41 Hypochromasia Not Reportable 05/25/18 06:41 Poikilocytosis 1+ 05/25/18 06:41 Anisocytosis 1+ 05/25/18 06:41 Microcytosis Not Reportable 05/25/18 06:41 Macrocytosis Not Reportable 05/25/18 06:41 Spherocytes Not Reportable 05/25/18 06:41 Pappenheimer Bodies Not Reportable 05/25/18 06:41 Sickle Cells Not Reportable 05/25/18 06:41 Target Cells Few 05/25/18 06:41 Tear Drop Cells Not Reportable 05/25/18 06:41 Ovalocytes Few 05/25/18 06:41 Helmet Cells Not Reportable 05/25/18 06:41 Benites-Senoia Bodies Not Reportable 05/25/18 06:41 Lima Rings Not Reportable 05/25/18 06:41 Maura Cells Not Reportable 05/25/18 06:41 Bite Cells Not Reportable 05/25/18 06:41 Crenated Cell Not Reportable 05/25/18 06:41 Elliptocytes Not Reportable 05/25/18 06:41 Acanthocytes (Spur) Not Reportable 05/25/18 06:41 Rouleaux Not Reportable 05/25/18 06:41 Hemoglobin C Crystals Not Reportable 05/25/18 06:41 Schistocytes Not Reportable 05/25/18 06:41 Malaria parasites Not Reportable 05/25/18 06:41 Marcos Bodies Not Reportable 05/25/18 06:41 Hem Pathologist Commnt No 05/25/18 06:41 Sodium 121 mmol/L (137-145) L 05/26/18 07:38 Potassium 4.1 mmol/L (3.6-5.0) 05/26/18 07:38 Chloride 78.4 mmol/L (98-107) L 05/26/18 07:38 Carbon Dioxide 25 mmol/L (22-30) 05/26/18 07:38 Anion Gap 22 mmol/L 05/26/18 07:38 BUN 101 mg/dL (9-20) H 05/26/18 07:38 Creatinine 4.6 mg/dL (0.8-1.5) H 05/26/18 07:38 Estimated GFR 17 ml/min 05/26/18 07:38 BUN/Creatinine Ratio 22 % 05/26/18 07:38 Glucose 122 mg/dL (75-100) H 05/26/18 07:38 Lactic Acid 1.90 mmol/L (0.7-2.0) 05/25/18 09:26 Uric Acid 17.2 mg/dL (3.5-7.6) H 05/25/18 12:46 Calcium 9.2 mg/dL (8.4-10.2) 05/26/18 07:38 Total Bilirubin 1.50 mg/dL (0.1-1.2) H 05/24/18 21:21 AST 145 units/L (5-40) H 05/24/18 21:21 ALT 162 units/L (7-56) H 05/24/18 21:21 Alkaline Phosphatase 112 units/L (35-129) 05/24/18 21:21 Total Creatine Kinase 142 units/L (55-170) 05/25/18 08:08 CK-MB (CK-2) 1.8 ng/mL (0.0-4.0) 05/25/18 08:08 CK-MB (CK-2) Rel Index 1.2 (0-4) 05/25/18 08:08 Troponin T 0.093 ng/mL (0.00-0.029) H 05/25/18 17:32 Total Protein 6.5 g/dL (6.3-8.2) 05/24/18 21:21 Albumin 3.6 g/dL (3.9-5) L 05/24/18 21:21 Albumin/Globulin Ratio 1.2 % 05/24/18 21:21 Triglycerides 62 mg/dL (2-149) 05/25/18 06:41 Cholesterol 80 mg/dL (50-199) 05/25/18 06:41 LDL Cholesterol Direct 54 mg/dL (50-130) 05/25/18 06:41 HDL Cholesterol 18 mg/dL (40-59) L 05/25/18 06:41 Cholesterol/HDL Ratio 4.44 % 05/25/18 06:41 Lipase 26 units/L (13-60) 05/24/18 21:21 TSH 1.970 mlU/mL (0.270-4.200) 05/25/18 12:46 Urine Color Yellow (Yellow) 05/25/18 01:50 Urine Turbidity Clear (Clear) 05/25/18 01:50 Urine pH 5.0 (5.0-7.0) 05/25/18 01:50 Ur Specific [place] 1.008 (1.003-1.030) 05/25/18 01:50 Urine Protein <15 mg/dl mg/dL (Negative) 05/25/18 01:50 Urine Glucose (UA) Neg mg/dL (Negative) 05/25/18 01:50 Urine Ketones Neg mg/dL (Negative) 05/25/18 01:50 Urine Blood Neg (Negative) 05/25/18 01:50 Urine Nitrite Neg (Negative) 05/25/18 01:50 Urine Bilirubin Neg (Negative) 05/25/18 01:50 Urine Urobilinogen < 2.0 mg/dL (<2.0) 05/25/18 01:50 Ur Leukocyte Esterase Neg (Negative) 05/25/18 01:50 Urine WBC (Auto) 1.0 /HPF (0.0-6.0) 05/25/18 01:50 Urine RBC (Auto) 1.0 /HPF (0.0-6.0) 05/25/18 01:50 Urine Mucus Few /HPF 05/25/18 01:50 Urine Eosinophils None seen (None Seen) 05/25/18 12:39 Urine Osmolality 292 Mosm/kg 05/25/18 12:39 Urine Creatinine 65.1 mg/dL (0.1-20.0) H 05/25/18 12:39 Urine Sodium 12 mmol/L 05/25/18 12:39 Fraction Sodium Excret 0.6 05/25/18 12:39 Hepatitis A IgM Ab Non-reactive (NonReactive) 05/25/18 12:46 Hep Bs Antigen Non-reactive (Negative) 05/25/18 12:46 Hep B Core IgM Ab Non-reactive (NonReactive) 05/25/18 12:46 Hepatitis C Antibody Non-reactive (NonReactive) 05/25/18 12:46
[2018-05-27] MEDS: MILRINONE-D5W 20 MG/100 ML 20 MG/100 ML BAG IV SCH (00:56)
[2018-05-27] MEDS: PERCOCET 5/325 PO PRN (02:58)
[2018-05-27] MEDS: ZOSYN/NS 2.25 GM/50ML 2.25 GM/50 ML BAG IV SCH ×2 (02:59→10:58)
[2018-05-27] MEDS: DEMADEX PO SCH (05:23)
[2018-05-27] MEDS: APRESOLINE PO SCH (05:24)
[2018-05-27 06:46] LABS: Calcium 8.9 mg/dL (8.4-10.2)
[2018-05-27] MEDS: ISORDIL TITRADOSE PO SCH (08:02)
[2018-05-27] MEDS: FEOSOL PO SCH (08:51)
[2018-05-27 08:59] VITALS: BP 91/63
[2018-05-27] MEDS: LOVENOX SUB-Q SCH (09:20)
[2018-05-27] MEDS: ALDACTONE PO SCH (09:20)
[2018-05-27] MEDS: BABY ASPIRIN PO SCH (09:20)
[2018-05-27] MEDS: LANOXIN PO SCH (09:20)
--- NOTE | 2018-05-27 09:28 | Progress Note ---
Assessment and Plan Impression * Acute on chronic renal failure * Nausea and vomiting * Hyponatremia * Severe cardiomyopathy * Hyperlipidemia Recommendations * Patient does have some fine basilar crackles and peripheral edema . * No further complaints of nausea or vomiting. Discontinue his IV fluid for now * Patient may have cardiorenal syndrome. * Currently on milrinone drip * Serum sodium is not improving, restrict free water intake. * Follow up results of vasculitis workup * Renal ultrasound is normal * Avoid nephrotoxins * Monitor fluid status and electrolytes closely * add samsca today, may need CONSOLIDATOR Subjective Date of service: 05/27/18 Principal diagnosis: N/V Interval history: resting well in bed today Objective - Exam Narrative Exam: General appearance: well-developed, well-nourished, appears stated age EENT: PERRL, mucous membranes moist Neck: no JVD, no thyromegaly, no carotid bruit, supple Respiratory: Present: Rales (left base) Cardiology: regular, normal heart rate, S1S2, no murmurs Gastrointestinal: normal, normoactive bowel sounds Integumentary: other (1+ edema) - Vital Signs Vital signs: Vital Signs - 12hr 05/26/18 05/26/18 05/27/18 21:58 22:17 00:00 Temperature 98.2 F Pulse Rate 113 H Pulse Rate [ 112 H Apical] Respiratory 18 18 18 Rate Blood Pressure Blood Pressure 83/57 [Left] O2 Sat by Pulse 98 100 Oximetry 05/27/18 05/27/18 05/27/18 02:58 03:58 04:09 Temperature 98.4 F Pulse Rate 113 H Pulse Rate [ Apical] Respiratory 18 18 18 Rate Blood Pressure 65/44 Blood Pressure [Left] O2 Sat by Pulse 100 Oximetry 05/27/18 05/27/18 05/27/18 05:24 05:31 08:54 Temperature 97.3 F L Pulse Rate 113 H 103 H Pulse Rate [ Apical] Respiratory 16 Rate Blood Pressure 65/44 65/41 91/63 Blood Pressure [Left] O2 Sat by Pulse 96 Oximetry - Lab 05/26/18 07:38 05/27/18 05:39 Most recent lab results Calcium 8.9 mg/dL (8.4-10.2) 05/27/18 05:39 Urine Creatinine 65.1 mg/dL (0.1-20.0) H 05/25/18 12:39 Urine Sodium 12 mmol/L 05/25/18 12:39 Medications & Allergies - Medications Allergies/Adverse Reactions: Allergies No Known Allergies Allergy (Verified 05/25/18 01:58) Home Medications: Home Medications Medication Instructions Recorded Confirmed Last Taken Type Aspirin [Aspirin BABY CHEW TAB] 81 mg PO QDAY 05/25/18 05/25/18 1 Day Ago History ~05/24/18 AtorvaSTATin [Lipitor] 20 mg PO QHS 05/25/18 05/25/18 1 Day Ago History ~05/24/18 Digoxin [Lanoxin] 0.125 mg PO DAILY 05/25/18 05/25/18 1 Day Ago History ~05/24/18 Ferrous Sulfate [Iron] 325 mg PO TID 05/25/18 05/25/18 1 Day Ago History ~05/24/18 Hydralazine HCl 50 mg PO Q8HR 05/25/18 05/25/18 1 Day Ago History ~05/24/18 Isosorbide Dinitrate [Isordil 10 mg PO TID 05/25/18 05/25/18 1 Day Ago History Titradose] ~05/24/18 Milrinone-D5w 20 mg/100 ml 7.1 hour IV CONT 05/25/18 05/25/18 05/25/18 06:06 History continuous Spironolactone [Aldactone] 25 mg PO QDAY 05/25/18 05/25/18 1 Day Ago History ~05/24/18 Torsemide [Demadex] 20 mg PO BID 05/25/18 05/25/18 1 Day Ago History ~05/24/18 oxyCODONE /ACETAMINOPHEN [Percocet 10 mg PO Q6HR PRN 05/25/18 05/25/18 1 Day Ago History 5/325] ~05/24/18 Active Medications: Generic Name Dose Route Start Last Admin Trade Name Freq PRN Reason Stop Dose Admin Acetaminophen 650 mg 05/25/18 01:50 Tylenol PO Q4H PRN Pain MILD(1-3)/Fever >100.5/SANTIAGO Aspirin 81 mg 05/25/18 18:00 05/27/18 09:20 Baby Aspirin PO 81 mg QDAY BURAK Administration Atorvastatin Calcium 20 mg 05/25/18 22:00 05/26/18 21:14 Lipitor PO 20 mg QHS BURAK Administration Digoxin 0.125 mg 05/25/18 18:00 05/27/18 09:20 Lanoxin PO 0.125 mg DAILY BURAK Administration Enoxaparin Sodium 30 mg 05/25/18 10:00 05/27/18 09:20 Lovenox SUB-Q 30 mg QDAY BURAK Administration Ferrous Sulfate 325 mg 05/25/18 20:00 05/27/18 08:51 Feosol PO 325 mg TID BURAK Administration Hydralazine HCl 50 mg 05/25/18 22:00 05/27/18 05:24 Apresoline PO Not Given Q8HR [facility] Piperacillin Sod/Tazobactam Sod 2.25 gm in 50 mls @ 100 mls/hr 05/25/18 03:00 05/27/18 02:59 Zosyn/Ns 2.25 Gm/50ml IV 100 mls/hr Q8H BURAK Administration Protocol Milrinone Lactate/Dextrose 20 mg in 100 mls @ 7.1 mls/hr 05/25/18 19:00 05/27/18 00:56 Milrinone-D5w 20 Mg/100 Ml IV 7.56 mls/hr DIRECT BURAK Administration Isosorbide Dinitrate 10 mg 05/25/18 20:00 05/27/18 08:02 Isordil Titradose PO Not Given TID [facility] Ondansetron HCl 4 mg 05/25/18 01:50 Zofran IV Q4H PRN Nausea And Vomiting Oxycodone/Acetaminophen 1 tab 05/25/18 01:50 05/27/18 02:58 Percocet 5/325 PO 1 tab Q6H PRN Administration Pain, Moderate (4-6) Oxycodone/Acetaminophen 1 tab 05/25/18 17:18 Percocet 5/325 PO Q6HR PRN Pain Sodium Chloride 10 ml 05/25/18 10:00 05/26/18 21:14 Sodium Chloride Flush Syringe 10 Ml IV 10 ml BID BURAK Administration Sodium Chloride 10 ml 05/25/18 01:50 Sodium Chloride Flush Syringe 10 Ml IV PRN PRN LINE FLUSH Spironolactone 25 mg 05/25/18 18:00 05/27/18 09:20 Aldactone PO 25 mg QDAY BURAK Administration Torsemide 20 mg 05/25/18 19:00 05/27/18 05:23 Demadex PO 20 mg BID@0600,1800 [facility] Administration
[2018-05-27] MEDS ORDERED: SAMSCA PO SCH (10:00)
[2018-05-27] MEDS: SODIUM CHLORIDE FLUSH SYRINGE 10 ML IV SCH (10:59)
--- NOTE | 2018-05-27 13:42 | Progress Note ---
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 With regard to the patient's cardiac status he has advanced end-stage heart failure. We will need to address possible inpatient versus home hospice. The patient was discharged from [facility] on Bumex 5 mg twice a day Colace 100 mg twice a day as needed potassium 20 mEq 2 tablets once a day continuous milrinone drip Aldactone 25 mg daily. The following medications were discontinued at [facility] start aspirin, Lipitor, digoxin, hydralazine, Percocet, and torsemide. Given the patient has known chronic pain he will likely require outpatient pain medicine to avoid withdrawal symptoms. In [facility] the patient was on hospital the patient was taking Percocet 5/325. Currently stable cardiac status. Pt may discharge from cardiology standpoint. Recommend pt follow up with his primary progressive assembler and fitter at [place] within 1-2 weeks of hospital discharge. Pt verbalizes understanding. The patient has been seen in conjunction with Dr. Millan who agrees with the assessment and plan of care. Subjective Date of service: 05/27/18 Principal diagnosis: N/V Interval history: pt sitting at bedside, no current cardiac complaints. n/v improving, tolerating diet. tele reviewed - pt in ST HR 100s. milrinone gtt infusing. Objective Last Vital Signs Temp 97.3 F L 05/27/18 08:54 Pulse 109 H 05/27/18 09:43 Resp 16 05/27/18 08:54 BP 91/63 05/27/18 08:54 Pulse Ox 96 05/27/18 08:54 - Physical Examination General: No Apparent Distress HEENT: Positive: PERRL Neck: Positive: neck supple, trachea midline Cardiac: Positive: Regular Rhythm, S1/S2 Lungs: Positive: Decreased Breath Sounds Neuro: Positive: Grossly Intact Abdomen: Positive: Soft, Decreased Bowel Sounds, Distended Skin: Negative: Rash, Suspicious Lesions Extremities: Present: +1 Edema, warm - Labs and Meds Comprehensive Metabolic Panel 05/27/18 Range/Units 05:39 Sodium 121 L (137-145) mmol/L Potassium 4.2 (3.6-5.0) mmol/L Chloride 77.5 L (98-107) mmol/L Carbon Dioxide 24 (22-30) mmol/L BUN 108 H (9-20) mg/dL Creatinine 4.3 H (0.8-1.5) mg/dL Glucose 112 H (75-100) mg/dL Calcium 8.9 (8.4-10.2) mg/dL
--- NOTE | 2018-05-27 15:45 | Query- Renal Failure ---
Aster Lerner____Genie Date:___05/27/2018 Cartographic Drafter/JENNA:__Mckayla Phone#:__[phone] Exercise your independent professional judgment when responding to query. Questions asked do not imply a particular answer is desired or expected. We greatly appreciate your clarification on this issue. Clinical Documentation States: 48-year-old man with a history of end-stage CHF on milrinone drip causing emergency room with complaints of nausea vomiting. Acute renal insufficiency on chronic PRESUMED CARDIORENAL SYNDROME. Clinical Findings Show: Creatinine 05/24 4.2 05/25 4.3 05/26 4.6 Please clarify if you mean: Acute Renal Failure with or due to: [ ] Tubular Necrosis [ ] Medullary Necrosis [ ] Vasomotor Nephropathy [X ] Shock Kidney [ ] Tubular Nephrosis [ ] Renal Tubular Stasis [ ] Cortical Necrosis [ ] Acute Renal Failure (unspecified) [ ] Lower Tubular Nephrosis [ ] Other: [ ] Not Applicable Present on Admission: [X ] Yes (Y) [ ] Clinically undeterminable (W) [ ] No (N) Please also document response in your Progress Notes and/or Discharge Summary and indicate if the condition was present on admission. MTDD
--- NOTE | 2018-05-27 16:56 | Discharge Summary ---
Providers - Providers Date of Admission: 05/25/18 01:50 Attending physician: ANGELA CORDOVA MD 05/25/18 01:50 Consult to Physician [CONS] Routine Comment: Consulting Provider: JOHNIE ARREGUIN Physician Instructions: Reason For Exam: chf on milirione drip 05/25/18 01:53 Consult to Physician [CONS] Routine Comment: Consulting Provider: VICENTE MERAZ Physician Instructions: Reason For Exam: arf 05/27/18 07:27 Physical Therapy Evaluation and Treat [CONS] Routine Comment: Reason For Exam: Pt requests for walker. Primary care physician: RESEARCH AND EVALUATION ANALYST Hospitalization Reason for admission: CHF Condition: Poor Hospital course: 48-year-old man with a history of end-stage CHF on milrinone drip causing emergency room with complaints of nausea vomiting. He was Recently hospitalized at [place] for nausea vomiting diarrhea and acute renal failure. He underwent a right heart cath, subsequently determined not to be a candidate for advanced therapies for treatment of his end-stage heart failure. Patient was transferred to [facility] advanced heart failure team for second opinion, he was deemed not to be a candidate for advanced therapy. He was made a DO NOT RESUSCITATE but he has rescinded DO NOT RESUSCITATE and wants everything to be done. Complaints of feeling cold, he hasn't had any narcotics in the last 3 da ys. Patient has persistent tachycardia since his been in the emergency room, ACCORDING TO REVIEW BY CARDIOLOGY The patient has been evaluated within 2 hospital systems and deemed not a candidate for advanced therapy. With regard to the patient's cardiac status he has advanced end-stage heart failure. We will need to address possible inpatient versus home hospice. The patient was discharged from [facility] on Bumex 5 mg twice a day Colace 100 mg twice a day as needed potassium 20 mEq 2 tablets once a day continuous milrinone drip Aldactone 25 mg daily. The following medications were disc ontinued at [facility] start aspirin, Lipitor, digoxin, hydralazine, Percocet, and torsemide. Given the patient has known chronic pain he will likely require outpatient pain medicine to avoid withdrawal symptoms. In [facility] the patient was on hospital the patient was taking Percocet 5/325. NEPHROLOGY RECOMMENDED PATIENT START ON DIALYSIS IF NO HOSPICE BEING PUT IN PLACE. PATIENT DECLINED AND SIGNED OUT AMA SIRS Acute renal insufficiency on chronic PRESUMED CARDIORENAL SYNDROM End-stage heart failure on milrinone drip Hyponatremia Chronic pain Chronic opioid dependant therapy Severe MR/TR Hyperlipidemia Disposition: DC-07 LEFT AGAINST MED ADVICE Time spent for discharge: 35 MINS Core Measure Documentation - Palliative Care Palliative Care/ Comfort Measures: Not Applicable - Core Measures Any of the following diagnoses?: heart failure - Heart Failure Discharge Requirements RELL/ARB for LVSD if EF <40%: No Reason for no RELL/ARB: Renal impairment Beta mariely at discharge: Yes Reason for no beta mariely on DC: Hypotension Exam - Physical Exam Narrative exam: VITAL SIGNS: Reviewed. GENERAL: The patient appeared well nourished and normally developed. Vital signs as documented. HEAD: No signs of head trauma. EYES: Pupils are equal. Extraocular motions intact. EARS: Hearing grossly intact. MOUTH: Oropharynx is normal. NECK: No adenopathy, no JVD. CHEST: Chest with diminshed breath sounds bilaterally. No wheezes, rales, or rhonchi. CARDIAC: Regular rate and rhythm. S1 and S2, without murmurs, gallops, or rubs. VASCULAR: +1 pitting Edema. Peripheral pulses normal and equal in all extremities. ABDOMEN: Soft, without detectable tenderness. No sign of distention. No rebound or guarding, and no masses palpated. Bowel Sounds normal. MUSCULOSKELETAL: Good range of motion of all major joints. Extremities without clubbing, cyanosis. +1 bilateral edema. NEUROLOGIC EXAM: Alert and oriented x 3. No focal sensory or strength deficits. Speech normal. Follows commands. PSYCHIATRIC: Mood normal. SKIN: No rash or lesions. - Constitutional Vitals: Temp Pulse Resp BP Pulse Ox 97.3 F L 109 H 16 91/63 96 05/27/18 08:54 05/27/18 09:43 05/27/18 08:54 05/27/18 08:54 05/27/18 08:54 Plan Activity: advance as tolerated, fall precautions Diet: low salt Special Instructions: restrict fluid intake to (1000CC), record daily BP diary Follow up with: PRIMARY CAREMD [Primary Care Provider] - 3-5 Days Forms: AMA Form
[2018-05-29 20:14] LABS: Myeloperoxidase Antibody <1.0 AI (<1.0)
[2018-05-31 09:45] LABS: Albumin 3.6 g/dL (3.8-4.8); Gamma Globulin 1.2 g/dL (0.8-1.7)
== END 2018-05-27 12:50 | disposition left against medical advice (07) | DRG 291 ==
LOC: ED 20:15 → 4A 05-25 01:50
PROVIDERS: ADMIT Internal Medicine; ATTEND Internal Medicine
DX: I13.0 Hypertensive heart and chronic kidney disease with heart failure and stage 1 through stage 4 chronic kidney disease, or unspecified chronic kidney disease (principal); N17.0 Acute kidney failure with tubular necrosis; F11.23 Opioid dependence with withdrawal; E87.1 Hypo-osmolality and hyponatremia; I50.40 Unspecified combined systolic (congestive) and diastolic (congestive) heart failure; I42.8 Other cardiomyopathies; R65.10 Systemic inflammatory response syndrome (SIRS) of non-infectious origin without acute organ dysfunction; Z66 Do not resuscitate; G89.29 Other chronic pain; I50.84 End stage heart failure; E78.5 Hyperlipidemia, unspecified; D72.829 Elevated white blood cell count, unspecified; R74.0 Nonspecific elevation of levels of transaminase and lactic acid dehydrogenase [LDH]; N18.3 Chronic kidney disease, stage 3 (moderate); M10.9 Gout, unspecified; Z82.49 Family history of ischemic heart disease and other diseases of the circulatory system; Z79.82 Long term (current) use of aspirin; Z79.899 Other long term (current) drug therapy
CPT/HCPCS: 36415; 71045; 76770; 80048; 80053; 80061; 80074; 81001; 82140; 82550; 82553; 82565; 82570; 83690; 83935; 84165; 84295; 84300; 84443; 84484; 84550; 85007; 85025; 86021; 86160; 86225; 86706; 86803; 87040; 89050; 93005; 93010; 96374; 96375; G0378; A9270-GY; J1650; J2260; J2405; J2543; J7030; J7040

== ENCOUNTER 2018-06-16 23:24 | Emergency (ER) | payer MEDICAID ==
--- NOTE | 2018-06-16 23:40 | Emergency Department Report ---
ED CPR HPI - General Stated Complaint: CARDIAC ARREST Time Seen by Provider: 06/16/18 23:39 - History of Present Illness Initial Comments: Patient is a 48-year-old male has medical history of end-stage heart failure on milrinone drip and end-stage renal disease who presents with status post cardiac arrest. Patient was found down by his EMS was called and chest compressions have been going on for over 40 minutes. History is limited due to acuity of patient's condition. - Related Data Home Medications Medication Instructions Recorded Confirmed Last Taken Aspirin [Aspirin BABY CHEW TAB] 81 mg PO QDAY 05/25/18 05/25/18 1 Day Ago ~05/24/18 AtorvaSTATin [Lipitor] 20 mg PO QHS 05/25/18 05/25/18 1 Day Ago ~05/24/18 Digoxin [Lanoxin] 0.125 mg PO DAILY 05/25/18 05/25/18 1 Day Ago ~05/24/18 Ferrous Sulfate [Iron] 325 mg PO TID 05/25/18 05/25/18 1 Day Ago ~05/24/18 Hydralazine HCl 50 mg PO Q8HR 05/25/18 05/25/18 1 Day Ago ~05/24/18 Isosorbide Dinitrate [Isordil 10 mg PO TID 05/25/18 05/25/18 1 Day Ago Titradose] ~05/24/18 Milrinone-D5w 20 mg/100 ml 7.1 hour IV CONT 05/25/18 05/25/18 05/25/18 06:06 continuous Spironolactone [Aldactone] 25 mg PO QDAY 05/25/18 05/25/18 1 Day Ago ~05/24/18 Torsemide [Demadex] 20 mg PO BID 05/25/18 05/25/18 1 Day Ago ~05/24/18 oxyCODONE /ACETAMINOPHEN [Percocet 10 mg PO Q6HR PRN 05/25/18 05/25/18 1 Day Ago 5/325] ~05/24/18 Allergies Allergy/AdvReac Type Severity Reaction Status Date / Time No Known Allergies Allergy Verified 05/25/18 01:58 ED Review of Systems ROS: Stated complaint: CARDIAC ARREST Other details as noted in HPI Comment: Unobtainable due to pts medical conditions ED Past Medical Hx - Past Medical History Hx Hypertension: Yes Hx Congestive Heart Failure: Yes - Social History Smoking Status: Former Smoker - Medications Home Medications: Home Medications Medication Instructions Recorded Confirmed Last Taken Type Aspirin [Aspirin BABY CHEW TAB] 81 mg PO QDAY 05/25/18 05/25/18 1 Day Ago History ~05/24/18 AtorvaSTATin [Lipitor] 20 mg PO QHS 05/25/18 05/25/18 1 Day Ago History ~05/24/18 Digoxin [Lanoxin] 0.125 mg PO DAILY 05/25/18 05/25/18 1 Day Ago History ~05/24/18 Ferrous Sulfate [Iron] 325 mg PO TID 05/25/18 05/25/18 1 Day Ago History ~05/24/18 Hydralazine HCl 50 mg PO Q8HR 05/25/18 05/25/18 1 Day Ago History ~05/24/18 Isosorbide Dinitrate [Isordil 10 mg PO TID 05/25/18 05/25/18 1 Day Ago History Titradose] ~05/24/18 Milrinone-D5w 20 mg/100 ml 7.1 hour IV CONT 05/25/18 05/25/18 05/25/18 06:06 History continuous Spironolactone [Aldactone] 25 mg PO QDAY 05/25/18 05/25/18 1 Day Ago History ~05/24/18 Torsemide [Demadex] 20 mg PO BID 05/25/18 05/25/18 1 Day Ago History ~05/24/18 oxyCODONE /ACETAMINOPHEN [Percocet 10 mg PO Q6HR PRN 05/25/18 05/25/18 1 Day Ago History 5/325] ~05/24/18 ED Physical Exam - General General appearance: other - Head Head exam: Present: atraumatic, normocephalic - Eye Eye exam: Present: other (pupils 5mm fixed and dilated ) - ENT ENT exam: Present: other (intubated ) - Respiratory Respiratory exam: Present: other (no spontaneous breath sounds ) - Cardiovascular Cardiovascular Exam: Present: other (no spontaneous heart rate ) - Neurological Exam Neurological exam: Present: other (unable to acess ) - Psychiatric Psychiatric exam: Present: other (unable to access ) - Skin Skin exam: Present: other (cool and dry ) ED Medical Decision Making - Medical Decision Making Cdx: Cardiac arrest 2/2 heart failure ddx: Fatal arrythmia, hyperkalemia I will give cpr, intubate and give meds See code sheet for further details. Time of was 11:35 Critical care attestation.: If time is entered above; I have spent that time in minutes in the direct care of this critically ill patient, excluding procedure time. ED Disposition Clinical Impression: Cardiac arrest Disposition: [id number] Is pt being admited?: No Does the pt Need Aspirin: No Condition: Stable Referrals: MEERA SLATER MD [Primary Care Provider] - 3-5 Days
[2018-06-17] MEDS ORDERED: ADRENALIN ONE (10:17)
== END 2018-06-17 05:00 ==
LOC: ED 23:24
DX: I46.9 Cardiac arrest, cause unspecified (principal); I11.0 Hypertensive heart disease with heart failure; I50.9 Heart failure, unspecified
CPT/HCPCS: 99285; J0171